=== PATIENT | female | born 1980 | race American Indian/Alaskan Native ===

== ENCOUNTER 2016-11-30 14:49 | Emergency (ER) | payer MEDICAID ==
--- NOTE | 2016-11-30 16:49 | Emergency Department Report ---
ED Shortness of Breath HPI - General Chief Complaint: Dyspnea/Respdistress Stated Complaint: NYA Time Seen by Provider: 11/30/16 16:32 Source: patient Mode of arrival: Ambulatory Limitations: No Limitations - History of Present Illness Initial Comments: 36-year-old female presents to the emergency Department complaining of the acute onset of shortness of breath just prior to arrival in the emergency department. Patient states that she was eating a brownie and talking on the phone when her symptoms began. She reports palpitations and lightheadedness. She has not loss consciousness. Patient is approximately 24 weeks . She denies abdominal pain, vaginal bleeding, or vaginal discharge. She does report movement. Patient's primary [employer] is located at [place]. She reports undergoing a cervical cerclage approximately one month ago. At this time, the patient reports feeling somewhat better. There are no other complaints. MD Complaint: shortness of breath -: Sudden, This afternoon Pain Scale: 0 Consistency: intermittent Improves With: nothing Associated Symptoms: palpitations Treatments Prior to Arrival: none - Related Data Previous Rx's Medication Instructions Recorded Last Taken Type hydrOXYzine PAMOATE [Vistaril] 25 mg PO Q6HR PRN #20 capsule 11/30/16 Unknown Rx Allergies Allergy/AdvReac Type Severity Reaction Status Date / Time No Known Allergies Allergy Unverified 06/24/14 12:26 ED Review of Systems ROS: Stated complaint: NYA Other details as noted in HPI Comment: All other systems reviewed and negative Respiratory: shortness of breath Cardiovascular: palpitations, syncope (lightheadedness, no loss of consciousness ) ED Past Medical Hx - Past Medical History Previous Medical History?: Yes Additional medical history: Anemia - Surgical History Past Surgical History?: Yes Additional Surgical History: . tonsillectomy - Family History Family history: no significant - Social History Smoking Status: Never Smoker Substance Use Type: None - Medications Home Medications: Home Medications Medication Instructions Recorded Confirmed Last Taken Type hydrOXYzine PAMOATE [Vistaril] 25 mg PO Q6HR PRN #20 capsule 11/30/16 Unknown Rx ED Physical Exam - General Limitations: No Limitations General appearance: alert, in no apparent distress - Head Head exam: Present: atraumatic, normocephalic - Eye Eye exam: Present: normal appearance, PERRL, EOMI - ENT ENT exam: Present: normal exam, normal orophraynx, mucous membranes moist - Neck Neck exam: Present: normal inspection, full ROM. Absent: tenderness - Respiratory Respiratory exam: Present: normal lung sounds bilaterally. Absent: respiratory distress - Cardiovascular Cardiovascular Exam: Present: normal rhythm, tachycardia, normal heart sounds - GI/Abdominal GI/Abdominal exam: Present: soft, normal bowel sounds. Absent: distended, tenderness - Extremities Exam Extremities exam: Present: normal inspection, full ROM. Absent: tenderness - Back Exam Back exam: Present: normal inspection, full ROM. Absent: tenderness - Neurological Exam Neurological exam: Present: alert, oriented X3. Absent: motor sensory deficit - Skin Skin exam: Present: warm, dry, intact ED Course Vital Signs 11/30/16 11/30/16 11/30/16 14:52 16:31 16:33 Temperature 98 F Pulse Rate 123 H 137 H Respiratory 18 Rate Blood Pressure 129/83 111/70 O2 Sat by Pulse 100 100 100 Oximetry 11/30/16 11/30/16 11/30/16 16:35 16:37 16:41 Temperature Pulse Rate 141 H 133 H Respiratory 25 H 15 25 H Rate Blood Pressure 111/70 111/70 O2 Sat by Pulse 100 100 100 Oximetry 11/30/16 11/30/16 11/30/16 17:01 17:30 18:00 Temperature Pulse Rate 124 H 127 H 113 H Respiratory 23 22 18 Rate Blood Pressure 118/52 106/61 99/51 O2 Sat by Pulse 100 100 95 Oximetry - Consultations Consultation #1: 11/30/16 16:58 I have spoken with Dr. Downs, [employer]. Patient is not hypoxic and has clear lung sounds. It is unlikely that the patient has a pulmonary embolism due to this. Anxiety is probably the underlying mechanism. Dr. Downs states they haven't had success using Vistaril in this Situation. Checking labs. Will reassess. ED Medical Decision Making - Lab Data Result diagrams: 11/30/16 17:34 - Medical Decision Making Lab results reviewed and discussed with the patient. Heart rate has improved with no intervention. Patient will be discharged home at this time to follow up with her primary care physician. Patient will be provided with a prescription for Vistaril per Dr. Downs's recommendations. - Differential Diagnosis anemia, anxiety Critical care attestation.: If time is entered above; I have spent that time in minutes in the direct care of this critically ill patient, excluding procedure time. ED Disposition Clinical Impression: Anxiety Disposition: DISCHARGED TO HOME OR SELFCARE Is pt being admited?: No Condition: Stable Instructions: Anxiety (ED) Prescriptions: hydrOXYzine PAMOATE [Vistaril] 25 mg PO Q6HR PRN #20 capsule PRN Reason: Anxiety Referrals: BEATRIZ SORIANO MD [Primary Care Provider] - 3-5 Days Time of Disposition: 18:18
[2016-11-30 17:55] LABS: Basophils % (Auto) 0.3 % (0.0-1.8); Eosinophils % (Auto) 0.3 % (0.0-4.3); Hematocrit 26.2 % (30.3-42.9); Mean Corpuscular HGB Conc 31 % (30-34); Platelet Count 233 K/mm3 (140-440); Red Blood Count 3.93 M/mm3 (3.65-5.03)
[2016-11-30 18:00] LABS: Mean Corpuscular Hemoglobin 20 pg (28-32); Mean Corpuscular Volume 67 fl (79-97); Red Cell Distribution Width 22.9 % (13.2-15.2)
[2016-11-30] MEDS ORDERED: VISTARIL PO ONE (18:14)
[2016-11-30 18:25] VITALS: BP 101/60
[2016-11-30 18:36] LABS: Anion Gap 16 mmol/L; Blood Urea Nitrogen 10 mg/dL (7-17); Carbon Dioxide 23 mmol/L (22-30); Chloride 105.4 mmol/L (98-107); Glucose 72 mg/dL (65-100); Potassium 3.8 mmol/L (3.6-5.0); Sodium 141 mmol/L (137-145)
== END 2016-11-30 18:28 | disposition home or self-care (01) ==
LOC: ED 14:49
DX: F41.9 Anxiety disorder, unspecified (principal); Z86.2 Personal history of diseases of the blood and blood-forming organs and certain disorders involving the immune mechanism
CPT/HCPCS: 36415; 80048; 85025; Q0177